=== PATIENT | male | born 1930 | race Caucasian/White ===

== ENCOUNTER 2019-06-14 12:53 | Inpatient (IN) | payer MEDICARE ==
[2019-06-14 13:36] LABS: Hemoglobin 13.6 g/dL (14.0-18.0); Mean Corpuscular HGB CONC 33.1 g/dL (32.0-36.0); Mean Corpuscular Hemoglobin 31.8 pg (27.0-31.0); Mean Platelet Volume 8.6 fL (7.4-10.4); Platelet Count 118 thou/uL (130-400); RBC Distribution Width 12.4 % (11.5-14.5); Red Blood Cell (RBC) Count 4.29 mill/uL (4.70-6.10); White Blood Cell (WBC) Count 6.7 thou/uL (4.8-10.8)
[2019-06-14 13:48] LABS: ALT (SGPT) 13 U/L (8-55); AST (SGOT) 26 U/L (5-34); Albumin 4.2 g/dL (3.4-4.8); Alkaline Phosphatase 89 U/L (40-150); Anion Gap 14 mmol/L (10-20); BUN (Urea Nitrogen) 24 mg/dL (8.4-25.7); Bilirubin, Total 0.6 mg/dL (0.2-1.2); Calc. Creatinine Clearance 0 mL/min (70-130); Carbon Dioxide 22 mmol/L (23-31); Chloride 106 mmol/L (98-107); Estimated GFR-MDRD 45; Globulin 2.4 g/dL (2.4-3.5); Glucose 105 mg/dL (83-110); Potassium 4.5 mmol/L (3.5-5.1); Protein, Total 6.6 g/dL (5.8-8.1); Sodium 137 mmol/L (136-145)
[2019-06-14 13:57] LABS: Band 11 % (5-11); Lymphocytes 9 % (21-51); MDiff Complete? YES; Monocytes 9 % (0-10); Neutrophil 69 % (42-75); Platelet Morphology Comment Appears Decreased; RBC Morphology Normal; Reactive Lymphocytes 2 % (0-10)
--- NOTE | 2019-06-14 14:35 | HP ---
REQUESTING PHYSICIAN: Dr. Ge. ATTENDING SURGEON: Dr. Jasso. HISTORY OF PRESENT ILLNESS: The patient is an 89-year-old man who was transferred here from [place] after having a fall. The patient is on Coumadin. His INR was 2.3, which by protocol requires admission, serial exams, and repeat head CT. The patient's initial head CT was unremarkable. The patient also has a large hematoma over his right knee from his fall. The patient denies loss of consciousness. Currently, he has no nausea, vomiting, or dizziness. The patient reports that he tripped due to using his walker, caught it on one of his stairs and fell forward. The patient had no syncopal events or symptoms prior to the fall or after. ALLERGIES: NONE. CURRENT MEDICATIONS: 1. Amlodipine. 2. Aspirin. 3. Coumadin. 4. Lasix. 5. Metoprolol. PAST MEDICAL HISTORY: 1. Hypertension. 2. Atrial fibrillation. 3. Coronary artery disease. 4. Prostate cancer. 5. Kidney cancer. 6. Abdominal aortic aneurysm. 7. BPH. PAST SURGICAL HISTORY: 1. C-spine and L-spine surgery. 2. Kidney surgery. 3. Three-vessel coronary artery bypass graft surgery. 4. Abdominal aortic aneurysm repair surgery. 5. Left knee surgery. SOCIAL HISTORY: The patient denies drug, tobacco, or alcohol use. The patient had smoked infrequently greater than 40 years ago. The patient currently lives at home independently and ambulates with a walker. PHYSICAL EXAMINATION: VITAL SIGNS: Blood pressure 121/71, heart rate 77, respirations 18, temperature is 98.4, and oxygen saturation 98% on room air. GENERAL: The patient is resting comfortably in bed. He is awake, alert, and oriented x3. Phyllis Coma Scale is 15. HEENT: Normocephalic and atraumatic. Eyes, extraocular motion intact. PERRLA bilaterally. Right lateral canthus area shows a small contusion. Nose is atraumatic without discharge. Ears are atraumatic without discharge. Oropharynx is clear. NECK: Nontender. Trachea is midline. No JVD. CHEST: Clear to auscultation with good inspiratory and expiratory effort. HEART: Regular rate and rhythm. There is an occasional pause/skip beat. ABDOMEN: Soft, flat, and nontender with active bowel sounds. EXTREMITIES: Neurovascularly intact x4. Right lower extremity; in the knee primarily anterior lateral shows a large hematoma and swelling. A small abrasion is noted on the anterior knee. All extremities are neurovascularly intact. BACK: Atraumatic and nontender. LABORATORY FINDINGS: White blood cell count 6.7, hemoglobin 13.6, hematocrit 41.2, and platelets 118. Sodium 137, potassium 4.5, chloride 106, CO2 of 22, BUN 24, creatinine 1.48, and glucose 105. LFTs are unremarkable. PT 25, INR 2.3, and PTT 58. RADIOGRAPHIC REPORTS: CT of the brain without contrast shows no CT evidence of acute intracranial process. Views of the right knee show no evidence of acute osseous abnormality. There is severe prepatellar soft tissue swelling. ASSESSMENT AND PLAN: 1. Status post ground-level fall. 2. History of Coumadin use. 3. Right-sided facial contusion. 4. Right knee contusion. Plan will be to admit the patient to the [facility] for serial exams q.2 hours with a repeat head CT scheduled for the morning. This will be done earlier if the patient has a decline of Phyllis Coma Scale score of 2 points or more. The patient is on nonnarcotic pain medication, pulmonary toilet, gastritis and mechanical VTE prophylaxis. The patient will also have clear liquid diet. The evaluation, examination, laboratory, and radiographic findings will be discussed with Dr. Jasso after this dictation. The patient's right knee will have Diallo wrap, ice, and elevation for treatment. Job ID: [id number]
[2019-06-14] MEDS ORDERED: Ondansetron ODT 4 MG TAB PO PRN (15:56)
[2019-06-14] MEDS ORDERED: Dextrose 50% Abboject 50 ML SYRINGE SLOW IVP PRN (15:56)
[2019-06-14] MEDS ORDERED: hydrALAZINE 20 MG/ML VIAL SLOW IVP PRN (15:56)
[2019-06-14] MEDS ORDERED: Dextrose 5% in Water 1,000 ML IV PRN (15:56)
[2019-06-14] MEDS ORDERED: Ondansetron PF 4 MG/2 ML Vial IVP PRN (15:56)
[2019-06-14 16:06] VITALS: BMI 30.8
[2019-06-14] MEDS: Sodium Chloride 0.9% 1,000 ML IV SCH (17:40)
[2019-06-14] MEDS: Senokot S 8.6-50 MG TAB PO SCH (20:41)
--- NOTE | 2019-06-14 23:06 | PRG ---
DATE OF SERVICE: SUBJECTIVE: Mr. Darby is an 89-year-old gentleman who is status post ground level fall, on Coumadin use. He sustained right-sided facial contusion, right knee contusion and brain CT scan showed no evidence of acute intracranial process. Patient has been admitted in the IMCU for serial neuro exam q.2 hour. Patient has been doing good. GCS 15. Patient is awake and alert and answers questions appropriately. No focal neurological deficits to be developed. Patient reports no headache or change of vision. Patient reports having pain of the right knee elevated with pain with movement. Other than that, patient raised no concern. OBJECTIVE: VITAL SIGNS: Patient's vital signs have been stable. Urine adequate. LUNGS: Clear bilaterally. HEART: Regular rate and rhythm. ABDOMEN: Soft and nondistended. Normal bowel sounds. EXTREMITIES: Right knee is swollen, soft, extremely tender to touch. NEUROLOGIC: No focal neurological deficits. PLAN: Patient continues to be in IMCU for serial neuro exam q.2 hour. We will repeat brain CT scan tomorrow and repeat coagulation tomorrow. If patient is stable, he can be transferred to surgical floor tomorrow. Continue gastritis, DVT prophylaxis non-pharmacology DVT prophylaxis. Job ID: [id number]
[2019-06-15] MEDS: Sodium Chloride 0.9% 1,000 ML IV SCH (03:04)
[2019-06-15 07:06] LABS: INR-International Normal Ratio 2.4
[2019-06-15 07:07] LABS: PTT 58.9 SEC (22.9-36.1)
[2019-06-15] MEDS ORDERED: Prevnar 13-Val Conj/PF 0.5 ML SYRINGE IM ONE (09:00)
--- NOTE | 2019-06-15 09:12 | CT ---
CT OF HEAD NONCONTRAST: COMPARISON: Previous day. INDICATION: Followup, history of fall and head injury. FINDINGS: Moderate global atrophy is redemonstrated with compensatory dilatation of the ventricular system. 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 No mass producing intracranial hemorrhage or midline shift. Mild mucosal thicken ing of the paranasal sinus. IMPRESSION: No acute intracranial abnormalities. POS: OFF
[2019-06-15] MEDS: Amiodarone 200 MG TAB PO SCH (09:23)
[2019-06-15] MEDS: Metoprolol Tartrate 50 MG TAB PO SCH ×2 (09:23→20:21)
[2019-06-15] MEDS: Famotidine 20 MG TAB PO SCH (09:23)
[2019-06-15] MEDS: Polyethylene Glycol 3350 17 GM Packet PO SCH (09:26)
[2019-06-15] MEDS: Senokot S 8.6-50 MG TAB PO SCH ×2 (09:26→20:21)
[2019-06-15] MEDS ORDERED: cloNIDine 0.2mg/24 Hour PATCH TD SCH (17:00)
[2019-06-15] MEDS ORDERED: traMADol HCl 50 MG TAB PO PRN ×2 (17:19)
[2019-06-15] MEDS ORDERED: Ibuprofen 600 MG TAB PO PRN (17:19)
[2019-06-15] MEDS ORDERED: Acetaminophen 500 MG TAB PO PRN (17:19)
[2019-06-15] MEDS ORDERED: Cyclobenzaprine 10 MG TAB PO PRN (17:19)
--- NOTE | 2019-06-16 00:52 | PRG ---
DATE OF SERVICE: 06/15/2019 HISTORY OF PRESENT ILLNESS: Mr. Darby is an 89-year-old gentleman, who is status post ground level fall on Coumadin use. He sustained a right-sided facial contusion, right knee contusion, and brain CT showed no evidence of acute intracranial process. Repeat CT had the same result. Patient's GCS has been 15. No neurologic focal deficits developed. The patient reports no headache or change of vision. Vital signs have been stable. Reports having pain from the right knee, pain has been getting worse with movement. The patient has the order to transfer to surgical floor. OBJECTIVE: VITAL SIGNS: Stable. GENERAL: The patient is lying down in bed comfortably. LUNGS: Clear bilateral. HEART: Regular rate and rhythm. ABDOMEN: Soft, nondistended. PLAN: Will be to continue to follow up in the surgical floor. Serial neuro check q.4 hours. Repeat coags tomorrow. Continue gastritis, non-pharmacologic DVT prophylaxis. The patient is pending to go to rehabilitation facility. Job ID: [id number]
[2019-06-16 05:26] LABS: INR-International Normal Ratio 2.1; PTT 50.6 SEC (22.9-36.1); Prothrombin Time 23.5 SEC (12.0-14.7)
[2019-06-16] MEDS: Senokot S 8.6-50 MG TAB PO SCH (09:29)
[2019-06-16] MEDS: Polyethylene Glycol 3350 17 GM Packet PO SCH (09:30)
[2019-06-16] MEDS: Amiodarone 200 MG TAB PO SCH (09:30)
[2019-06-16] MEDS: Metoprolol Tartrate 50 MG TAB PO SCH (09:30)
[2019-06-16] MEDS: Famotidine 20 MG TAB PO SCH (09:30)
[2019-06-16 11:39] VITALS: BP 119/70; TEMP 97.4
[2019-06-16] MEDS ORDERED: Tamsulosin HCl 0.4 MG CAP PO SCH (21:00)
--- NOTE | 2019-06-17 02:40 | DIS ---
DATE OF ADMISSION: 06/14/2019 DATE OF DISCHARGE: 06/16/2019 ADMISSION DIAGNOSES: 1. Status post ground level fall. 2. History of Coumadin use. 3. Right-sided facial contusion. 4. Right knee contusion. CONSULTATIONS: None. PROCEDURES: None. HISTORY OF PRESENT ILLNESS: Patient is an 89-year-old man who is on Coumadin for his atrial fibrillation. The patient had a ground level fall and due to his INR being 2.5, per our guidelines, the patient was admitted to the hospital. His repeat head CT was unremarkable. The patient had no neuro changes. His most significant issue was swelling to his knee from the fall and due to the Coumadin use, the amount of swelling he had. The knee swelling was all anterior, did not appear to be a joint/hemarthrosis. At the time of discharge, the patient will be discharged to a nursing home facility due to his difficulty ambulating, to work with therapy there. He may follow up with Orthopedics in 2-3 weeks and continue ice, elevate, and Diallo wrap. The patient will need to follow up early next week with his primary care provider to check his INR and resume his Coumadin as needed. At the time of discharge, the patient's pain was controlled and he was tolerating diet and he was ambulating with assistance. Job ID: [id number]
== END 2019-06-16 14:34 | disposition home or self-care (01) | DRG 605 ==
LOC: ERS 12:53 → IMCU/EMU 15:51 → SURG A 06-15 22:14
PROVIDERS: ADMIT Surgery; ATTEND Surgery
DX: S80.01XA Contusion of right knee, initial encounter (principal); I48.91 Unspecified atrial fibrillation; S00.83XA Contusion of other part of head, initial encounter; W01.0XXA Fall on same level from slipping, tripping and stumbling without subsequent striking against object, initial encounter; Y93.01 Activity, walking, marching and hiking; I10 Essential (primary) hypertension; I25.10 Atherosclerotic heart disease of native coronary artery without angina pectoris; N40.0 Benign prostatic hyperplasia without lower urinary tract symptoms; Z79.01 Long term (current) use of anticoagulants; Z85.46 Personal history of malignant neoplasm of prostate; Y92.009 Unspecified place in unspecified non-institutional (private) residence as the place of occurrence of the external cause; Z85.528 Personal history of other malignant neoplasm of kidney
CPT/HCPCS: 36415; 70450; 85610; 85730; 93005; G0390